=== PATIENT | female | born 1960 | race Caucasian/White ===

== ENCOUNTER 2017-08-15 13:08 | Outpatient (CLI) | payer OTHER | END 2017-08-15 13:10 | disposition home or self-care (01) | LOC: MAMO-SONO 13:08 | DX: Z12.31 Encounter for screening mammogram for malignant neoplasm of breast (principal) ==

== ENCOUNTER 2017-08-16 14:48 | Outpatient (CLI) | payer OTHER | END 2017-08-16 17:06 | disposition home or self-care (01) | LOC: TOM 14:48 | DX: R10.84 Generalized abdominal pain (principal) ==

== ENCOUNTER 2017-08-23 15:58 | Outpatient (CLI) | payer OTHER | END 2017-08-24 11:41 | disposition home or self-care (01) | LOC: TOM 15:58 | DX: J44.9 Chronic obstructive pulmonary disease, unspecified (principal) ==

== ENCOUNTER 2020-02-11 11:51 | Outpatient (CLI) | payer OTHER | END 2020-02-11 14:26 | disposition home or self-care (01) | LOC: MAMO-SONO 11:51 | DX: Z12.31 Encounter for screening mammogram for malignant neoplasm of breast (principal); N64.59 Other signs and symptoms in breast ==

== ENCOUNTER 2020-03-01 12:59 | Outpatient (CLI) | payer OTHER | END 2020-03-01 13:07 | disposition home or self-care (01) | LOC: NUCLEAR 12:59 | DX: M81.0 Age-related osteoporosis without current pathological fracture (principal) ==

== ENCOUNTER 2021-09-15 10:00 | Outpatient (CLI) | payer OTHER | END 2021-09-16 07:44 | disposition home or self-care (01) | LOC: MAMO-SONO 10:00 | DX: Z12.31 Encounter for screening mammogram for malignant neoplasm of breast (principal); Z98.82 Breast implant status ==

== ENCOUNTER 2023-11-27 10:46 | Outpatient (CLI) | payer OTHER | END 2023-11-27 10:55 | disposition home or self-care (01) | LOC: MAMO-SONO 10:46 | DX: Z98.82 Breast implant status (principal) ==

== ENCOUNTER 2024-05-21 07:11 | Outpatient (CLI) | payer OTHER | END 2024-05-21 07:14 | disposition home or self-care (01) | LOC: NUCLEAR 07:11 | PROVIDERS: ATTEND Internal Medicine Gastroenterology | DX: E11.43 Type 2 diabetes mellitus with diabetic autonomic (poly)neuropathy (principal) | CPT/HCPCS: 78264; A9541 ==